=== PATIENT | male | born 1940 | race Caucasian/White ===

== ENCOUNTER 2022-11-04 14:30 | Outpatient (AMB) | payer MEDICARE, OTHER, SELFPAY ==
[2022-11-04 14:32] VITALS: BP 158/80; PULSE 79; O2SAT 100; BMI 25.8
--- NOTE | 2022-11-04 14:32 | A.OFFVIS_ITS ---
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 He is accompanied by his daughter in law. His family noticed has noticed short term memory issues for past 2 years and is slowly progressing. He frequently misplaces things, repeats questions , forgets conversations, trouble to take his medications, had trouble with turning off his oven etc. He had a fall last year and had a closed head injury.He was very confused at that time. His mood is not well controlled . His PCP prescribed a medication but he stopped.His 3 years ago and has been depressed since then. His gait has slowed down and he has been shuffling. He has occasional hand tremors. He has urinary frequency, urgency since his TURP procedure . He was diagnosed with sleep apnea in and was on CPAP. He stopped his CPAP when his urinary issues started about 1 year ago . He had trouble taking off and putting on his CPAP. He also has double vision - was tested by eye doctor , suggested prisms and neuro evaluation- transient and self resoves. His daughter in law also wants to address neuropathy that was diagnosed by PCP and started on gabapentin which was d/jakob 4 mths ago . He was on gabapentin 400mg tid . He also has dizziness, lightheadedness for many years now. No vertigo. [facility] Medical History (Updated 11/04/22 @ 15:23 by Paige Santamaria MD) Anemia Arthritis Atrial fibrillation Borderline hyperlipidemia Cognitive disorder Depression HTN (hypertension) Hypersomnia Obstructive sleep apnea Occasional tremors ZO on CPAP Snoring Family History Father Heart disease Dementia Mother Dementia Social History Alcohol intake: former Patient Tobacco Use Status: Former Tobacco user Review of Systems Const Reports fatigue Eyes Reports diplopia ENT Reports dizziness Card Reports irregular heart rhythm GI Reports constipation Reports urinary frequency and Reports urinary urgency Musc Reports back pain Neuro Reports dizziness, Reports memory loss and Reports tremor(s) Psych Reports depression and Reports memory loss Endo Reports fatigue Physical Exam Vital Signs: Last Vital Signs Pulse 79 11/04/22 14:32 BP 158/80 H 11/04/22 14:32 Pulse Ox 100 11/04/22 14:32 Oxygen Delivery Method Room Air 11/04/22 14:32 BMI result Body Mass Index 25.8 Const General: cooperative and comfortable Nutritional Appearance: average body habitus Orientation/consciousness: patient oriented x3 Neuro Other: mild bradykinesia Gait - good posture slow small steps but good turning with cane General: patient oriented x3, moves all extremities and no focal motor deficits Cranial nerves: Yes Bilaterally intact EOM present, Yes Nystagmus not present, Yes Normal facial strength present and Yes Midline tongue present Motor exam (neuro): 5/5 motor strength present throughout and Normal motor muscle tone present throughout Deep tendon reflexes (DTR's): Right triceps reflex intensity grade: 1+, Left triceps reflex intensity grade: 1+, Rt Biceps (C5, C6): 1+, Left biceps reflex intensity grade: 1+, Right brachioradialis reflex intensity grade: 1+, Left brachioradialis reflex intensity grade: 1+, Right patellar reflex intensity grade: 1+ and Left patellar reflex intensity grade: 1+ Coordination: [id number] test normal Orientation What is the (year) (season) (date) (day) (month)?: year, season, date, day and month Where are we (state) (county) (town or city) (hospital) (floor)?: state, county, town or city, hospital/clinic and floor Registration Name of 3 unrelated objects clearly and slowly, then ask patient to repeat all 3 of them. (1st repeat determines score. Make sure they can repeat all three): object 1, object 2 and object 3 Attention & Calculation (CHOOSE ONE) Spell WORLD backwards (DLROW): 2 letters Recall Ask patient to repeat the 3 items from question #3.: object 1 and object 3 Language Show patient a wristwatch & ask what it is. Repeat for pencil.: watch and pencil Ask the patient to repeat the phrase 'No ifs, ands, or buts' after you.: correct Ask the patient to 'take a piece of paper with their right hand' 'fold paper in half' 'place paper on floor': take paper in right hand, fold paper in half and place paper on floor Print the sentence 'CLOSE YOUR EYES' on a piece. If patient actually closes eyes then score.: followed written direction Give patient a blank piece of paper & ask to write a sentence. Score if it contains a noun & verb.: sentence contains subject and verb Score Score: 25 Assessment & Plan Assessment & Plan (1) Cognitive disorder: Comment: multifactorial - poorly controlled mood, ? vascular? untreated sleep apnea. Code(s): F09 - Unspecified mental disorder due to known physiological condition (2) Depression: Code(s): F32.A - Depression, unspecified (3) Obstructive sleep apnea: Code(s): G47.33 - Obstructive sleep apnea (adult) (pediatric) Plan MRI brain - premedicate for claustrophobia Home sleep test tor revaluate sleep apnea. I will trial him on sertraline 50mg qd for mood Lab reports from PCP Orders: Orders MR head/brain wo con Today F09 - Unspecified mental disorder due to known physiological condition RT home sleep study Today G47.10 - Hypersomnia, unspecified, R06.83 - Snoring Medications: New sertraline 50 mg PO DAILY 30 tabs 3RF Coding Level of Care Code New Pt Level 4 (28349) Diagnoses Cognitive disorder F09 Depression F32.A Obstructive sleep apnea G47.33
== END 2022-11-04 15:30 | disposition home or self-care (01) ==
PROVIDERS: Visit Provider Psychiatry & Neurology Neurology
DX: R41.89 Other symptoms and signs involving cognitive functions and awareness (principal); F32.A Depression, unspecified; G47.33 Obstructive sleep apnea (adult) (pediatric)
CPT/HCPCS: 99204

== ENCOUNTER → 2022-11-04 14:30 | Outpatient (BNVA) | payer MEDICARE, OTHER, SELFPAY | PROVIDERS: Visit Provider Psychiatry & Neurology Neurology | DX: F09 Unspecified mental disorder due to known physiological condition (principal); F32.A Depression, unspecified; G47.33 Obstructive sleep apnea (adult) (pediatric) | CPT/HCPCS: 99202 ==